=== PATIENT | male | born 1960 | race Caucasian/White ===

== ENCOUNTER → 2016-06-15 | Outpatient (CLI) | payer BC | END | disposition disaster alternative care site (69) | LOC: GRAD 07:27 | DX: M25.511 Pain in right shoulder (principal); S37.23XA Laceration of bladder, initial encounter; S43.491A Other sprain of right shoulder joint, initial encounter; S46.811A Strain of other muscles, fascia and tendons at shoulder and upper arm level, right arm, initial encounter; M25.011 Hemarthrosis, right shoulder; M25.411 Effusion, right shoulder; R60.0 Localized edema ==